=== PATIENT | female | born 1980 | race American Indian/Alaskan Native ===

== ENCOUNTER 2019-06-14 10:58 | Emergency (ER) | payer OTHER, MEDICAID ==
[~2019-06-14] VITALS: Ht 152.4 cm; Wt 65.8 kg
[2019-06-14 11:52] LABS: BASOPHILS ABSOLUTE AUTO 0.02 K/mm3 (0.00-0.23); BASOPHILS PERCENT AUTO 0 % (0-2); EOSINOPHILS ABSOLUTE AUTO 0.09 K/mm3 (0.00-0.68); EOSINOPHILS PERCENT AUTO 1 % (0-6); Hematocrit 36.5 % (33.0-51.0); Hemoglobin 12.2 g/dL (11.5-16.0); IMMATURE GRAN ABSOLUTE AUTO 0.03 K/mm3 (0.00-0.10); IMMATURE GRAN PERCENT AUTO 0 % (0-1); LYMPHOCYTES ABSOLUTE AUTO 1.37 K/mm3 (0.84-5.20); LYMPHOCYTES PERCENT AUTO 20 % (21-46); MONOCYTES ABSOLUTE AUTO 0.39 K/mm3 (0.16-1.47); MONOCYTES PERCENT AUTO 6 % (4-13); Mean Corpuscular HGB Conc 33.4 g/dL (31.5-36.5); Mean Corpuscular Volume 93 fL (80-100); Mean Platelet Volume 10.9 fL (9.1-12.4); NEUTROPHILS PERCENT AUTO 72 % (41-73); Platelet Count 215 K/mm3 (150-400); RDW Coefficient Variation 12.3 % (11.7-14.2); RDW Standard Deviation 41.6 fL (35.1-46.3); Red Blood Cell Count 3.94 M/mm3 (3.80-5.20)
[2019-06-14 12:07] LABS: International Normalized Ratio 0.97; Prothrombin Time Results 10.3 Sec (9.7-11.5)
[2019-06-14 12:10] LABS: Source, Urine Clean Catch
[2019-06-14 12:19] LABS: Appearance, Urine Clear (Clear); Bilirubin, Urine Neg (Neg); Blood, Urine Neg (Neg); Color, Urine Yellow (P-Yellow); Glucose Qualitative, Urine Neg (Neg); Ketones, Urine Neg (Neg); Leukocyte Esterase, Urine Neg (Neg); Nitrite, Urine Neg (Neg); Protein, Urine Neg (Neg); Urobilinogen, Urine NORM (Normal)
[2019-06-14 12:26] LABS: Anion Gap 7 mmol/L (6-16); Blood Urea Nitrogen 6 mg/dL (8-24); Bun/Creatinine Ratio 10.1 (12.0-20.0); CO2, Blood 23 mmol/L (21-32); Calcium, Blood 8.3 mg/dL (8.5-10.1); Chloride, Blood 110 mmol/L (98-108); Creatinine, Blood 0.59 mg/dL (0.40-1.00); Glomerular Filtration Rate >60 (60-); Glucose, Blood 77 mg/dL (70-99); Potassium, Blood 3.6 mmol/L (3.5-5.5); Sodium, Blood 140 mmol/L (136-145)
[2019-06-14 12:43] LABS: Beta HCG, Quantitative, Serum 48852 mIU/mL (0-3)
== END 2019-06-14 14:09 | disposition home or self-care (01) ==
LOC: ER 10:58
PROVIDERS: Emergency Medicine
DX: O34.81 Maternal care for other abnormalities of pelvic organs, first trimester (principal); N83.202 Unspecified ovarian cyst, left side; Z87.891 Personal history of nicotine dependence; Z86.711 Personal history of pulmonary embolism; Z86.718 Personal history of other venous thrombosis and embolism; Z3A.08 8 weeks gestation of pregnancy
CPT/HCPCS: 36415; 76801; 76817; 80048; 81003; 84702; 85025; 85610; 85730; 96360; 96361; 99284-25; J7030

== ENCOUNTER → 2019-12-22 | Outpatient (CLI) | payer OTHER, MEDICAID | LOC: LAB 16:17 → LAB SHORT 16:17 | DX: O09.523 Supervision of elderly multigravida, third trimester (principal); Z3A.36 36 weeks gestation of pregnancy | CPT/HCPCS: 87081; 87653 ==

== ENCOUNTER 2020-01-08 11:30 | Inpatient (IN) | payer OTHER, MEDICAID ==
[~2020-01-08] VITALS: Ht 152.4 cm; Wt 68.1 kg
[2020-01-08] MEDS ORDERED: PRENATAL TABLE1 EAC2 PO (12:03)
[2020-01-08] MEDS ORDERED: ENOX40I SC (12:03)
[2020-01-08 13:16] LABS: BASOPHILS ABSOLUTE AUTO 0.01 K/mm3 (0.00-0.23); BASOPHILS PERCENT AUTO 0 % (0-2); EOSINOPHILS ABSOLUTE AUTO 0.07 K/mm3 (0.00-0.68); EOSINOPHILS PERCENT AUTO 1 % (0-6); Hematocrit 35.9 % (33.0-51.0); Hemoglobin 11.2 g/dL (11.5-16.0); IMMATURE GRAN ABSOLUTE AUTO 0.09 K/mm3 (0.00-0.10); IMMATURE GRAN PERCENT AUTO 1 % (0-1); LYMPHOCYTES ABSOLUTE AUTO 1.23 K/mm3 (0.84-5.20); LYMPHOCYTES PERCENT AUTO 15 % (21-46); MONOCYTES ABSOLUTE AUTO 0.47 K/mm3 (0.16-1.47); MONOCYTES PERCENT AUTO 6 % (4-13); Mean Corpuscular HGB 29.2 pg (26.0-34.0); Mean Corpuscular HGB Conc 31.2 g/dL (31.5-36.5); Mean Corpuscular Volume 94 fL (80-100); Mean Platelet Volume 11.6 fL (9.1-12.4); NEUTROPHILS ABSOLUTE AUTO 6.34 K/mm3 (1.96-9.15); NEUTROPHILS PERCENT AUTO 77 % (41-73); Platelet Count 238 K/mm3 (150-400); RDW Coefficient Variation 13.9 % (11.7-14.2); RDW Standard Deviation 47.3 fL (35.1-46.3); Red Blood Cell Count 3.83 M/mm3 (3.80-5.20); White Blood Cell Count 8.21 K/mm3 (4.00-11.30)
--- NOTE | 2020-01-08 22:32 | NUR ---
AT APPROX 2114, COMOTION WAS HEARD IN PT'S ROOM BETWEEN PT AND FOB. 2 RNS CAME INTO ROOM TO ASSESS SITUATION. PT WAS CRYING AND APPEARED TO BE UPSET. FOB WAS STANDING ON OTHER SIDE OF ROOM. FOB ASKED TO LEAVE ROOM FOR BOTH TO HAVE A MINUTE AND CALM DOWN. RUSTY Amaya,RN ESCORTED FOB OUT OF ROOM. FOB CLAIMS THAT THE MOTHER HAS BEEN VERY UPSET AND THIS WAS THE 4TH TIME THAT SHE HAS THROWN THINGS AT HIM IN ANGER OVER FAMILY ISSUES AT HOME (DAUGHTER NOT BEING WELCOMED OVER AT HOUSE). FOB APPEARS TO BE CALM AND IS FINE WITH GIVING PT SPACE TO CALM DOWN. NICOLLE, PRIMARY RN ATTEMPTED TO TALK TO PT TO SEE WHAT WAS GOING ON AND IF ANYTHING COULD BE DONE TO HELP. PT REPLIED WITH "JUST STUPID SHIT" AND DENIED NEEDING ANYTHING AT THE MOMENT.
[2020-01-09 06:26] LABS: BASOPHILS ABSOLUTE AUTO 0.02 K/mm3 (0.00-0.23); BASOPHILS PERCENT AUTO 0 % (0-2); EOSINOPHILS ABSOLUTE AUTO 0.02 K/mm3 (0.00-0.68); EOSINOPHILS PERCENT AUTO 0 % (0-6); Hematocrit 30.7 % (33.0-51.0); Hemoglobin 9.8 g/dL (11.5-16.0); IMMATURE GRAN PERCENT AUTO 1 % (0-1); LYMPHOCYTES ABSOLUTE AUTO 1.03 K/mm3 (0.84-5.20); LYMPHOCYTES PERCENT AUTO 6 % (21-46); MONOCYTES PERCENT AUTO 4 % (4-13); Mean Corpuscular HGB 29.7 pg (26.0-34.0); Mean Corpuscular HGB Conc 31.9 g/dL (31.5-36.5); Mean Corpuscular Volume 93 fL (80-100); Mean Platelet Volume 11.9 fL (9.1-12.4); NEUTROPHILS ABSOLUTE AUTO 15.06 K/mm3 (1.96-9.15); NEUTROPHILS PERCENT AUTO 89 % (41-73); Platelet Count 229 K/mm3 (150-400); RDW Coefficient Variation 13.9 % (11.7-14.2); RDW Standard Deviation 46.9 fL (35.1-46.3); White Blood Cell Count 16.93 K/mm3 (4.00-11.30)
[2020-01-10] MEDS ORDERED: IBUP800 (10:31)
--- NOTE | 2020-01-10 11:15 | NUR ---
DISCHARGE INSTRUCTIONS, WRITTEN AND VERBAL, GIVEN TO PT AND S.O. ANSWERED ALL QUESTIONS AND CONCERNS. PT DECLINES FOLLOW UP APPOINTMENT AT [facility]. ALL PERSONAL BELONGINGS RETURNED. PT IS DISCHARGED HOME.
== END 2020-01-10 12:33 | disposition home or self-care (01) | DRG 807 ==
LOC: OBS 11:30 → BC 11:37 → OBS 11:43 → BC 11:47
PROVIDERS: ADMIT Obstetrics & Gynecology
PROC: 10E0XZZ Delivery of Products of Conception, External Approach (ICD-10-PCS; principal; 2020-01-09)
PROC: 3E033VJ Introduction of Other Hormone into Peripheral Vein, Percutaneous Approach (ICD-10-PCS; 2020-01-09)
PROC: 10907ZC Drainage of Amniotic Fluid, Therapeutic from Products of Conception, Via Natural or Artificial Opening (ICD-10-PCS; 2020-01-09)
DX: O80 Encounter for full-term uncomplicated delivery (principal); Z37.0 Single live birth; Z3A.38 38 weeks gestation of pregnancy; O99.334 Smoking (tobacco) complicating childbirth; F17.200 Nicotine dependence, unspecified, uncomplicated; Z86.718 Personal history of other venous thrombosis and embolism
CPT/HCPCS: 36415; 85025; 86850; 86900; 86901; A9270; J0290; J1650; J1885; J2210; J2590; J7120

== ENCOUNTER 2021-02-07 23:31 | Inpatient (IN) | payer OTHER ==
[~2021-02-07] VITALS: Ht 152.4 cm; Wt 63.5 kg
[~2021-02-07 23:31] MED LIST: ENOX40I SC; IBUP800; PRENATAL TABLE1 EAC2 PO
[2021-02-07 23:50] LABS: Source, Urine Clean Catch
[2021-02-07 23:57] LABS: Bilirubin, Urine Neg (Neg); Blood, Urine Neg (Neg); Glucose Qualitative, Urine Neg (Neg); Ketones, Urine 1+ (Neg); Leukocyte Esterase, Urine 1+ (Neg); Nitrite, Urine Neg (Neg); Protein, Urine Neg (Neg); Urobilinogen, Urine NORM (Normal)
[2021-02-08] LABS: BASOPHILS ABSOLUTE AUTO 0.02 K/mm3 (0.00-0.23); BASOPHILS PERCENT AUTO 0 % (0-2); EOSINOPHILS ABSOLUTE AUTO 0.15 K/mm3 (0.00-0.68); EOSINOPHILS PERCENT AUTO 2 % (0-6); Hematocrit 38.2 % (33.0-51.0); Hemoglobin 12.6 g/dL (11.5-16.0); IMMATURE GRAN ABSOLUTE AUTO 0.03 K/mm3 (0.00-0.10); IMMATURE GRAN PERCENT AUTO 0 % (0-1); LYMPHOCYTES PERCENT AUTO 18 % (21-46); MONOCYTES ABSOLUTE AUTO 0.52 K/mm3 (0.16-1.47); MONOCYTES PERCENT AUTO 5 % (4-13); Mean Corpuscular HGB 30.2 pg (26.0-34.0); Mean Corpuscular Volume 92 fL (80-100); Mean Platelet Volume 10.3 fL (9.1-12.4); NEUTROPHILS ABSOLUTE AUTO 7.32 K/mm3 (1.96-9.15); NEUTROPHILS PERCENT AUTO 75 % (41-73); Platelet Count 289 K/mm3 (150-400); RDW Coefficient Variation 12.1 % (11.7-14.2); RDW Standard Deviation 40.7 fL (35.1-46.3); Red Blood Cell Count 4.17 M/mm3 (3.80-5.20); White Blood Cell Count 9.74 K/mm3 (4.00-11.30)
[2021-02-08 00:04] LABS: Appearance, Urine Clear (Clear); Color, Urine Yellow (P-Yellow); Squamous Epithelial Cells Few /hpf (Few); White Blood Cells, Urine 0-2 /hpf (0-5)
[2021-02-08 00:05] LABS: Bacteria Mod /hpf; Mucus Light (0-Heavy)
[2021-02-08 00:21] LABS: Alanine Aminotransfer (ALT/SGP 23 U/L (12-78); Albumin, Blood 3.7 g/dL (3.4-5.0); Albumin/Globulin Ratio 0.9 (0.8-1.8); Alk Phos 95 U/L (50-136); Anion Gap 5 mmol/L (6-16); Aspartate Aminotrans (AST/SGOT 10 U/L (12-37); Bilirubin, Total 0.2 mg/dL (0.1-1.0); Blood Urea Nitrogen 7 mg/dL (8-24); CO2, Blood 29 mmol/L (21-32); Calcium, Blood 9.1 mg/dL (8.5-10.1); Chloride, Blood 108 mmol/L (98-108); Creatinine, Blood 0.64 mg/dL (0.40-1.00); Globulin, Blood 3.9 g/dL (2.2-4.0); Glomerular Filtration Rate >60 (60-); Glucose, Blood 107 mg/dL (70-99); Potassium, Blood 3.6 mmol/L (3.5-5.5); Sodium, Blood 142 mmol/L (136-145); Total Protein, Blood 7.6 g/dL (6.4-8.2)
--- NOTE | 2021-02-08 04:34 | NUR ---
APPAREL MANUFACTURE INSTRUCTOR SUMMARY A/O X4, ED ADMIT AT 0315. IND TO BATHROOM. NS RUNNING AT 75ML/HR. CURRENTLY NPO. C/O PAIN TO LLQ, DENIES NAUSEA AT THIS TIME. VSS, NO ACUTE CHANGES NOTED. BED IN LOWEST POSITION WITH CALL LIGHT IN REACH. WILL CONINTUE TO MONITOR AND REPORT TO ONCOMING RN.
[2021-02-08 05:20] LABS: BASOPHILS ABSOLUTE AUTO 0.02 K/mm3 (0.00-0.23); BASOPHILS PERCENT AUTO 0 % (0-2); EOSINOPHILS ABSOLUTE AUTO 0.15 K/mm3 (0.00-0.68); EOSINOPHILS PERCENT AUTO 2 % (0-6); Hematocrit 34.8 % (33.0-51.0); Hemoglobin 11.5 g/dL (11.5-16.0); IMMATURE GRAN ABSOLUTE AUTO 0.04 K/mm3 (0.00-0.10); IMMATURE GRAN PERCENT AUTO 1 % (0-1); LYMPHOCYTES ABSOLUTE AUTO 1.67 K/mm3 (0.84-5.20); LYMPHOCYTES PERCENT AUTO 21 % (21-46); MONOCYTES PERCENT AUTO 5 % (4-13); Mean Corpuscular HGB 30.3 pg (26.0-34.0); Mean Corpuscular Volume 92 fL (80-100); Mean Platelet Volume 10.3 fL (9.1-12.4); NEUTROPHILS ABSOLUTE AUTO 5.52 K/mm3 (1.96-9.15); NEUTROPHILS PERCENT AUTO 71 % (41-73); Platelet Count 245 K/mm3 (150-400); RDW Coefficient Variation 12.2 % (11.7-14.2); RDW Standard Deviation 40.9 fL (35.1-46.3)
[2021-02-08 05:33] LABS: International Normalized Ratio 0.96; Prothrombin Time Results 10.3 Sec (9.7-11.5)
[2021-02-08 05:36] LABS: Anion Gap 4 mmol/L (6-16); Blood Urea Nitrogen 7 mg/dL (8-24); Bun/Creatinine Ratio 10.7 (12.0-20.0); CO2, Blood 27 mmol/L (21-32); Calcium, Blood 8.6 mg/dL (8.5-10.1); Chloride, Blood 110 mmol/L (98-108); Creatinine, Blood 0.66 mg/dL (0.40-1.00); Glomerular Filtration Rate >60 (60-); Glucose, Blood 101 mg/dL (70-99); Potassium, Blood 3.6 mmol/L (3.5-5.5); Sodium, Blood 141 mmol/L (136-145)
--- NOTE | 2021-02-08 17:03 | NUR ---
SHIFT SUMMARY PT A&OX4, VSS/RA, NPO, INDEPENDENT IN ROOM, HALLWAY, TO BRP. VOIDING WELL. IVF @ 75 MLS/HR; ABX Q6. PAIN MANAGED WITH 25 MCGS FENT. NICODERM PATCH L SHOULDER. WILL REPORT TO ONCOMING NOC RN.
--- NOTE | 2021-02-09 04:25 | NUR ---
SHIFT SUMMARY S/P SIGMOID DIVERTICULITIS, A/O X4, VSS, TOLERATING PO FLUIDS, PAIN MANAGED PER EMAR, VOIDING/BM, INDEPENDENT IN ROOM, TOLERATING IV ABX, NO ACUTE EVENTS THIS SHIFT. CALL LIGHT IN REACH, WILL CONTINUE TO MONITOR AND REPORT TO ONCOMING DAY RN.
[2021-02-09 04:29] LABS: Hematocrit 33.2 % (33.0-51.0); Hemoglobin 10.6 g/dL (11.5-16.0); Mean Corpuscular HGB Conc 31.9 g/dL (31.5-36.5); Mean Corpuscular Volume 94 fL (80-100); Mean Platelet Volume 10.3 fL (9.1-12.4); Platelet Count 231 K/mm3 (150-400); RDW Coefficient Variation 12.3 % (11.7-14.2); RDW Standard Deviation 42.2 fL (35.1-46.3); Red Blood Cell Count 3.53 M/mm3 (3.80-5.20); White Blood Cell Count 6.14 K/mm3 (4.00-11.30)
[2021-02-09 04:44] LABS: Anion Gap 4 mmol/L (6-16); Blood Urea Nitrogen 6 mg/dL (8-24); Bun/Creatinine Ratio 10.4 (12.0-20.0); CO2, Blood 26 mmol/L (21-32); Calcium, Blood 8.1 mg/dL (8.5-10.1); Chloride, Blood 111 mmol/L (98-108); Creatinine, Blood 0.58 mg/dL (0.40-1.00); Glomerular Filtration Rate >60 (60-); Glucose, Blood 77 mg/dL (70-99); Potassium, Blood 3.8 mmol/L (3.5-5.5); Sodium, Blood 141 mmol/L (136-145)
--- NOTE | 2021-02-09 17:18 | NUR ---
SHIFT SUMMARY PT ADMITTED FOR ACUTE DIVERTICULITIS WITH AN INTRAMURAL ABSCESS. A/O X4; PLEASANT AND COOPERATIVE WITH CARE. REPORTS FEELING MUCH BETTER TODAY AND MEDICATED FOR PAIN X1 THIS SHIFT. DAY 2 OF IV ANTIBIOTICS. IND IN THE ROOM AND TOLERATING LIQUIDS. VSS.
--- NOTE | 2021-02-10 06:29 | NUR ---
PT VSS T/O NIGHT. ABD SOFT, LESS DISTENDED PER PT. PT ROCKY FL PO, NO N/V. PT REP +FLATUS, HAD 1 LOOSE BM THIS SHIFT. PAIN MGD W/PO PAIN MEDS W/REP RELIEF. IVF AND ABX CONT PER ORDERS. PT AMB INDEP IN HALLS, ROCKY WELL.
[2021-02-10] MEDS ORDERED: OXAYDO5 M1 PO (13:26)
[2021-02-10] MEDS ORDERED: AMOX-CLAV 875-1 EAC1 PO (13:26)
--- NOTE | 2021-02-10 14:14 | NUR ---
DISCHARGE INSTRUCTIONS REVIEWED WITH PATIENT. PATIENT HAS NO QUESTIONS REGARDING DISCHARGE. PT WAITING FOR HER TO ARRIVE TO TAKE HER HOME
--- NOTE | 2021-02-10 15:53 | NUR ---
1550 discharge yo home with . pt alvaro full liquids without nausea. pt reports pain is controlled. ambulating in alcocer
== END 2021-02-10 15:50 | disposition home or self-care (01) | DRG 392 ==
LOC: ER 23:31 → SURS 02-08 03:05
PROVIDERS: Emergency Medicine; Internal Medicine; ADMIT Internal Medicine
DX: K57.20 Diverticulitis of large intestine with perforation and abscess without bleeding (principal); L02.91 Cutaneous abscess, unspecified; F17.210 Nicotine dependence, cigarettes, uncomplicated; Z86.718 Personal history of other venous thrombosis and embolism
CPT/HCPCS: 36415; 74177; 80048; 80053; 81001; 81025; 83605; 83690; 85025; 85027; 85610; 87040; 87086; 94640; 94760; 96374; 96375; 99285-25; A9270; J0295; J1170; J1644; J1885; J2543; J3010; J7030; Q9967

== ENCOUNTER 2023-09-14 17:04 | Inpatient (IN) | payer OTHER ==
[~2023-09-14] VITALS: Ht 152.4 cm; Wt 55.0 kg
[~2023-09-14 17:04] MED LIST changes: +AMOX-CLAV 875-1 EAC1 PO; +OXAYDO5 M1 PO
[2023-09-14 18:19] LABS: BASOPHILS ABSOLUTE AUTO 0.03 K/mm3 (0.00-0.23); BASOPHILS PERCENT AUTO 0 % (0-2); EOSINOPHILS ABSOLUTE AUTO 0.22 K/mm3 (0.00-0.68); EOSINOPHILS PERCENT AUTO 3 % (0-6); Hematocrit 41.2 % (33.0-51.0); Hemoglobin 13.6 g/dL (11.5-16.0); IMMATURE GRAN ABSOLUTE AUTO 0.02 K/mm3 (0.00-0.10); IMMATURE GRAN PERCENT AUTO 0 % (0-1); LYMPHOCYTES ABSOLUTE AUTO 1.61 K/mm3 (0.84-5.20); LYMPHOCYTES PERCENT AUTO 20 % (21-46); MONOCYTES ABSOLUTE AUTO 0.37 K/mm3 (0.16-1.47); MONOCYTES PERCENT AUTO 5 % (4-13); Mean Corpuscular HGB 31.2 pg (26.0-34.0); Mean Corpuscular Volume 95 fL (80-100); NEUTROPHILS ABSOLUTE AUTO 5.89 K/mm3 (1.96-9.15); NEUTROPHILS PERCENT AUTO 72 % (41-73); Platelet Count 258 K/mm3 (150-400); RDW Coefficient Variation 12.4 % (11.7-14.2); RDW Standard Deviation 42.9 fL (35.1-46.3); Red Blood Cell Count 4.36 M/mm3 (3.80-5.20); White Blood Cell Count 8.14 K/mm3 (4.00-11.30)
[2023-09-14 18:38] LABS: Albumin, Blood 4.3 g/dL (3.4-5.0); Albumin/Globulin Ratio 1.1 (0.8-1.8); Bilirubin, Total 0.1 mg/dL (0.1-1.0); Bun/Creatinine Ratio 18.9 (12.0-20.0); Calcium, Blood 9.3 mg/dL (8.5-10.1); Creatinine, Blood 0.74 mg/dL (0.40-1.00); Globulin, Blood 3.9 g/dL (2.2-4.0); Potassium, Blood 3.7 mmol/L (3.5-5.5); Total Protein, Blood 8.2 g/dL (6.4-8.2)
[2023-09-14] MEDS ORDERED: Ventolin/Prove6.7 GM INH (21:34)
[2023-09-15 02:40] LABS: Automated CSF WBC Count 0.005 K/mm3 (0-5)
[2023-09-15 03:53] LABS: Appearance, CSF Clear (Clear); Color, CSF No Color (No Color); RBC Count, CSF 5 /mm3 (0-0)
[2023-09-15 03:54] LABS: WBC Count, CSF 5 /mm3 (0-5)
[2023-09-15 04:09] LABS: Enterovirus Not Detected (NOT DETECT); Escherichia Coli K1 Not Detected (NOT DETECT); Haemophilus Influenza Not Detected (NOT DETECT); Herpes Simplex Virus 1 Not Detected (NOT DETECT); Herpes Simplex Virus 2 Not Detected (NOT DETECT); Human Herpesvirus 6 Not Detected (NOT DETECT); Human Parechovirus Not Detected (NOT DETECT); Listeria Monocytogenes Not Detected (NOT DETECT); Neisseria Meningitidis Not Detected (NOT DETECT); Streptococcus Agalactiae Not Detected (NOT DETECT); Streptococcus Pneumoniae Not Detected (NOT DETECT); Varicella Zoster Virus Not Detected (NOT DETECT)
[2023-09-15 04:10] LABS: Cryptococcus Neoformans/Gattii Not Detected (NOT DETECT)
[2023-09-15 04:11] LABS: Glucose, CSF 53 mg/dL (40-70)
[2023-09-15 05:30] VITALS: BP 115/73
[2023-09-15 07:10] VITALS: BP 101/67
[2023-09-15 11:24] LABS: CHOL/HDL RATIO 3.2; Cholesterol 153 mg/dL (50-200); HDL Cholesterol 48 mg/dL (>39); LDL/HDL RATIO 1.5; Low Density Lipoprotein Chol 71 mg/dL (0-110); Triglycerides 170 mg/dL (30-160); Very Low Density Lipoprot Chol 34 mg/dL (6-32)
[2023-09-15 14:57] VITALS: BP 121/73
[2023-09-15 19:25] VITALS: BP 107/72
--- NOTE | 2023-09-15 20:07 | NUR ---
SHIFT SUMMARY PATIENT WITH HEADACHE TODAY, MEDICATE PER EMAR WITH RELIEF. SHE IS STILL HAVING RIGHT SIDED WEAKNESS. DENIES DIZZINESS OR LIGHTHEADEDNESS, INDEPENDENT TO THE BATHROOM. BED IN LOW POSITION, CALL LIGHT IN REACH. PATIENT CALLS APPROPRIATELY.
[2023-09-16 03:47] VITALS: BP 120/73
--- NOTE | 2023-09-16 05:22 | NUR ---
SHIFT SUMMARY; NO ACUTE CHANGES OVERNIGHT. THE PT IS AXO X4 AND INDEPENDENT IN THE ROOM. THE PT HAS HAD A HEADACHE THE ENTIRE NIGHT, MODERATELY CONTROLLED W/ TYLENOL. THE PTS R SIDE REMAINS WEAK, MORE NOTICABLE IN THE PTS R HAND THAN IN HER R LEG. THE PT ENDORSES A MILD BURNING SENSATION OVER THE L SIDE OF HER BODY. THE PT DENIES ANY SOB, CHEST PAIN/PRESSURE OR N/V. CURRENTLY THE PT IS SLEEPING IN BED WITH THE BED IN THE LOWEST POSITION AND THE CALL LIGHT AT BEDSIDE. FIRE SAFETY MAINTAINED T/O THE NIGHT.
[2023-09-16 08:02] VITALS: BP 117/67
--- NOTE | 2023-09-16 15:20 | NUR ---
SHIFT SUMMARY: Pt remains A&O x4 this shift. VSS. PO meds for headace given. Weakness noted to right side greater in right hand. Independent with ambulating. Bed in lowest position, call light in reach. Will report to RN that will assign remaining shift.
[2023-09-16 15:37] VITALS: BP 121/69
--- NOTE | 2023-09-16 18:00 | NUR ---
TOOK OVER PT'S CARE AT 1537. PT HAD BEEN TREATED FOR COLLADO PER EMAR AND HAD REQUESTED MORE TYLENOL WELL. PT LATER CONTINUES TO HAVE INCREASED HEADACHE PAIN WHEN SITTING UP EATING DINNER. PT STATES SHE CAN GET COMFORTABLE LAYING DOWN, BUT SITTIN UP GETS BAD. NOTIFIED DR WARNER OF SITUATION AND INSTRUCTED TO HAVE PT LAY DOWN MORE AND SEE IF HEACHE IMPROVES OVER NIGHT. CALL SANDY KHAN WILL CONTINUE TO MONITOR.
--- NOTE | 2023-09-16 18:45 | NUR ---
Called to patients room. Pt friend with her is former employee and mutual nusing friend. Introduction and concern expressed for her sick friend. consult placed. Pt was needing to talk we reviewed her life and stress. 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 She recently had a very traumatic case. Pt [place]. She has been fling through a terrible devorce and has been staing at a camp on the property. she had a sick child sent to [facility] recently for and infection. Pt states they get their water from a spring. The spring has been low so drinking from the pond. They also drink raw milk and process most of their own foods. Asked her also if she has see many rodents or racoons and ticks. She denies and falls or recent trauma. pt has some extensive history. Will continue to monitor.
[2023-09-16 19:41] VITALS: BP 128/74
[2023-09-17 04:02] VITALS: BP 103/66
--- NOTE | 2023-09-17 04:54 | NUR ---
SHIFT SUMMARY; NO ACUTE CHANGES OVERNIGHT. THE PT IS AXO X4 AND INDEPENDENT IN THE ROOM. AT THE BEGINNING OF THE SHIFT THE PT HAS A MILD HEADACHE. THIS AM THE PT STATES THAT HER HEADACHE IS ALMOST GONE BUT HER BACK IS HURTING. PT HAD A RECENT LUMBAR PUNCTURE. TELE IS IN PLACE[facility] IN THE 50'S T/O THE NIGHT. THE PT DENIES ANY CHEST PAIN/PRESSURE, N/V OR SOB THIS SHIFT. CURRENTLY THE PT IS SITTING IN BED WITH THE BED IN THE LOWEST POSITION AND THE CALL LIGHT AT BEDSIDE. FIRE SAFETY CHECKS COMPLETED T/O THE NIGHT.
[2023-09-17 07:50] VITALS: BP 110/71
[2023-09-17 15:38] VITALS: BP 113/74
--- NOTE | 2023-09-17 17:52 | NUR ---
SHIFT SUMMARY A&OX4, COOPERATIVE WITH CARE, PLEASANT. INDEPENDENT AND CALLS APPROPRIATELY. MAIN CONCERN TODAY WAS A CONSTANT HEADACHE THAT GOT WORSE WITH SITTING UP AND ANY EXERTION. TORADOL ORDERED AND ADMINISTERED TWICE THIS SHIFT. PATIENT REPORTS NO PAIN AT THIS TIME. THERE WAS A CONCERN THAT THE HEADACHE IS R/T PT'S LUMBAR PUNCTURE. INVERFORM MACHINE OPERATOR ASSESSED PATIENT, HAND WRITTEN NOTE IN HARD CHART. PLAN IS FOR PATIENT TO BE DISCHARGED TOMORROW DEPENDING ON THE PROGRESS OF HER HEADACHE. NO ACUTE CHANGES THIS SHIFT. PATIENT IS CURRENTLY EATING DINNER, BED IN LOWEST POSITION, CALL LIGHT WITHIN REACH.
[2023-09-17 20:42] VITALS: BP 120/71
--- NOTE | 2023-09-18 05:03 | NUR ---
SHIFT SUMMARY PT IS A&O4, INDPENDENT IN THE ROOM, RA, VSS, NO COMPLAINTS OF HEADACHE OR ACUTE OVERNIGHT EVENTS, CONTINUE POC
[2023-09-18 07:29] VITALS: BP 110/70
[2023-09-18] MEDS ORDERED: Nicoderm Cq1 EAC1 TOP (15:39)
[2023-09-18] MEDS ORDERED: IBUP600 PO (15:39)
[2023-09-18] MEDS ORDERED: Acetaminophen650 M1 PO (15:39)
--- NOTE | 2023-09-18 18:17 | NUR ---
DAYSHIFT SUMMARY Patient reported getting OOB to BR this AM, and soon after experiencing severe throbbing COLLADO. MD instructed RN to notify anesthiologist about blood patch. Dr Peralta consulted with patient yesterday, and wrote progress noted in hardchart. Plan to do blood patch if COLLADO continued over night & AM. Patient waited all day for consult, MD consulted this afternoon. Patient stated COLLADO was getting better & she wanted to DC home and wait it out. MD notified and discharge ordered. Reviewed discharge teaching with patient. Patient stated she already has f/u appt with her PCP tomorrow. Patient ready for discharge, waiting for ride.
== END 2023-09-18 18:49 | disposition home or self-care (01) | DRG 60 ==
LOC: ER 17:04 → MEDS 17:05 → ERHOLD 17:05 → MEDS 09-15 05:17
PROVIDERS: Emergency Medicine; Family Medicine; Student in an Organized Health Care Education/Training Program; ADMIT Student in an Organized Health Care Education/Training Program
PROC: 009U3ZX Drainage of Spinal Canal, Percutaneous Approach, Diagnostic (ICD-10-PCS; principal; 2023-09-14)
PROC: B24BZZZ Ultrasonography of Heart with Aorta (ICD-10-PCS; 2023-09-15)
DX: G35 Multiple sclerosis (principal); G81.91 Hemiplegia, unspecified affecting right dominant side; F17.210 Nicotine dependence, cigarettes, uncomplicated; J01.90 Acute sinusitis, unspecified; R20.2 Paresthesia of skin; E78.1 Pure hyperglyceridemia; G97.1 Other reaction to spinal and lumbar puncture; Z88.5 Allergy status to narcotic agent; Z86.711 Personal history of pulmonary embolism
CPT/HCPCS: 36415; 62270; 70450; 70551; 70552; 72156; 72157; 80053; 80061; 82945; 83036; 84157; 84443; 85025; 87070; 87205; 87483; 89051; 93306; 96365; 96366; 96374-59; 96375-59; 96376-59; 97110; 97112; 97116; 97162; 97165; 97530; 99285-25; A9270; A9579; G0378; J0696; J1650; J1885; J3370; J7050; J8499

== ENCOUNTER 2023-10-20 15:15 | Emergency (ER) | payer OTHER ==
[~2023-10-20] VITALS: Ht 152.4 cm; Wt 59.0 kg
[~2023-10-20 15:15] MED LIST changes: +Acetaminophen650 M1 PO; +IBUP600 PO; +Nicoderm Cq1 EAC1 TOP; +Ventolin/Prove6.7 GM INH
[2023-10-20 19:41] LABS: BASOPHILS ABSOLUTE AUTO 0.04 K/mm3 (0.00-0.23); BASOPHILS PERCENT AUTO 1 % (0-2); EOSINOPHILS ABSOLUTE AUTO 0.28 K/mm3 (0.00-0.68); EOSINOPHILS PERCENT AUTO 3 % (0-6); Hematocrit 37.7 % (33.0-51.0); Hemoglobin 12.1 g/dL (11.5-16.0); IMMATURE GRAN ABSOLUTE AUTO 0.02 K/mm3 (0.00-0.10); IMMATURE GRAN PERCENT AUTO 0 % (0-1); LYMPHOCYTES ABSOLUTE AUTO 1.89 K/mm3 (0.84-5.20); LYMPHOCYTES PERCENT AUTO 23 % (21-46); MONOCYTES ABSOLUTE AUTO 0.56 K/mm3 (0.16-1.47); MONOCYTES PERCENT AUTO 7 % (4-13); Mean Corpuscular HGB 30.7 pg (26.0-34.0); Mean Corpuscular HGB Conc 32.1 g/dL (31.5-36.5); Mean Corpuscular Volume 96 fL (80-100); Mean Platelet Volume 10.6 fL (9.1-12.4); NEUTROPHILS ABSOLUTE AUTO 5.52 K/mm3 (1.96-9.15); NEUTROPHILS PERCENT AUTO 67 % (41-73); Platelet Count 285 K/mm3 (150-400); RDW Coefficient Variation 12.8 % (11.7-14.2); RDW Standard Deviation 44.7 fL (35.1-46.3); Red Blood Cell Count 3.94 M/mm3 (3.80-5.20); White Blood Cell Count 8.31 K/mm3 (4.00-11.30)
[2023-10-20 20:17] LABS: Albumin, Blood 4.1 g/dL (3.4-5.0); Albumin/Globulin Ratio 1.2 (0.8-1.8); Bilirubin, Total 0.2 mg/dL (0.1-1.0); Bun/Creatinine Ratio 16.1 (12.0-20.0); Calcium, Blood 8.7 mg/dL (8.5-10.1); Creatinine, Blood 0.75 mg/dL (0.40-1.00); Globulin, Blood 3.3 g/dL (2.2-4.0); Magnesium, Blood 2.3 mg/dL (1.6-2.4); Potassium, Blood 3.6 mmol/L (3.5-5.5); Total Protein, Blood 7.4 g/dL (6.4-8.2)
[2023-10-20] MEDS ORDERED: METPRE32 PO (20:54)
[2023-10-20 22:21] VITALS: BP 121/70
== END 2023-10-20 22:05 | disposition home or self-care (01) ==
LOC: ER 15:15
PROVIDERS: Emergency Medicine
DX: G35 Multiple sclerosis (principal); M54.12 Radiculopathy, cervical region; F17.210 Nicotine dependence, cigarettes, uncomplicated; Z88.5 Allergy status to narcotic agent; Z79.51 Long term (current) use of inhaled steroids
CPT/HCPCS: 36415; 80053; 83735; 85025; 96365; 99283-25; J2930; J7509